=== PATIENT | male | born 1970 | race Caucasian/White ===

== ENCOUNTER 2020-12-11 22:54 | Emergency (ER) | payer MEDICARE ==
[~2020-12-11] VITALS: Ht 182.9 cm; Wt 100.0 kg
[2020-12-11] MEDS ORDERED: DIPH,PERTUSS(ACELL),TET VAC/PF 0.5 ML IM-VACC ONE (23:30)
[2020-12-11] MEDS ORDERED: LIDOCAINE-MPF 1%, 5ML INFIL ONE (23:30)
[2020-12-11] MEDS ORDERED: SODIUM CHLORIDE FLUSH 10ML SYR IVF ONE (23:30)
[2020-12-11 23:39] LABS: BASOPHILS % (AUTO) 1 % (0-1); EOSINOPHILS % (AUTO) 1 % (1-7); LYMPHOCYTES % (AUTO) 32 % (22-44); MEAN CORPUSCULAR HEMOGLOBIN 32.2 pg (27.5-34.5); MEAN CORPUSCULAR HGB CONC 34.7 g/dL (33.2-36.2); MEAN PLATELET VOLUME 7.7 fL (7.4-10.4); MONOCYTES % (AUTO) 7 % (2-9); NEUTROPHILS % (AUTO) 59 % (42-75); PLATELET COUNT 337 x10^3/uL (130-400); RED BLOOD COUNT 4.79 x10^6/uL (4.38-5.82); RED CELL DISTRIBUTION WIDTH 13.7 % (9.4-14.8)
[2020-12-11 23:40] LABS: MD NO
[2020-12-11 23:46] LABS: ALANINE AMINOTRANSFERASE 62 U/L (12-78); ALBUMIN 3.3 g/dL (3.4-5.0); ANION GAP 8 mmol/L (5-15); CHLORIDE 111 mmol/L (98-107); CREATININE 1.15 mg/dL (0.7-1.3)
[2020-12-11 23:48] LABS: ALKALINE PHOSPHATASE 157 U/L (45-117); BILIRUBIN,TOTAL 0.3 mg/dL (0.2-1.0); TOTAL PROTEIN 7.5 g/dL (6.4-8.2)
[2020-12-12] MEDS ORDERED: LIDOCAINE-MPF 1%, 5ML ONE
[2020-12-12] MEDS ORDERED: DIPH,PERTUSS(ACELL),TET VAC/PF 0.5 ML IM-VACC ONE (00:01)
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
--- NOTE | 2020-12-12 01:41 | NUR ---
PROVIDER AT BEDSIDE AT THIS TIME
[2020-12-12 02:31] VITALS: BP 132/78
== END 2020-12-12 02:35 | disposition home or self-care (01) ==
LOC: ED 12-12 02:32
DX: S51.812A Laceration without foreign body of left forearm, initial encounter (principal); F10.220 Alcohol dependence with intoxication, uncomplicated; R94.31 Abnormal electrocardiogram [ECG] [EKG]; X58.XXXA Exposure to other specified factors, initial encounter; Y93.89 Activity, other specified; Y92.89 Other specified places as the place of occurrence of the external cause; Y99.8 Other external cause status
CPT/HCPCS: 12031; 36415; 70450; 71045; 80053; 80320; 85025; 90471; 90715; 93005; 99285; G0480

== ENCOUNTER 2020-12-22 19:51 | Emergency (ER) | payer MEDICARE ==
[~2020-12-22] VITALS: Ht 182.9 cm; Wt 107.1 kg
[2020-12-22 20:10] VITALS: BP 126/91
--- NOTE | 2020-12-22 20:13 | NUR ---
SUTURES REMOVED BY NILAM RODGERS IN TRIAGE.
== END 2020-12-22 20:23 | disposition home or self-care (01) ==
LOC: ED 20:00
DX: S41.112D Laceration without foreign body of left upper arm, subsequent encounter (principal); X58.XXXD Exposure to other specified factors, subsequent encounter
CPT/HCPCS: 99281